=== PATIENT | male | born 1990 | race Caucasian/White ===

== ENCOUNTER 2018-03-13 05:19 | Emergency (ER) | payer SELFPAY ==
[~2018-03-13 05:19] MED LIST: CEP500 PO; LOR5/325 PO; NO ROUTINE MEDS
--- NOTE | 2018-03-13 05:23 | ER Report ---
History and Physical Time Seen By MD: 05:21 (CM DORANTES DO) HPI/ROS CHIEF COMPLAINT: Left testicular swelling and pain HISTORY OF PRESENT ILLNESS: 27-year-old male presents complaining of left testicular swelling and pain since 10:30 PM last night after having intercourse. Patient states the pain is very similar to when he had a previous torsion. Patient has a distant history of a previous torsion when he was in high school. Patient states he got in a warm bathtub and manipulated his testicles. He thinks he reliefed the torsion that he was experiencing. Patient 's pain was so severe that he had several episodes of vomiting. He notes that all /10 pain over the epididymis. REVIEW OF SYSTEMS: Respiratory: No cough, no dyspnea. Cardiovascular: No chest pain, no palpitations. Gastrointestinal: As above Musculoskeletal: No back pain. (CM DORANTES DO) Allergies: Coded Allergies: No Known Allergies (Verified Allergy, Mild, 03/13/18) Home Meds Active Scripts Doxycycline Hyclate (DOXYCYCLINE HYCLATE) 100 Mg Tablet, 100 MG PO BID for 10 Days, #20 TAB 0 Refills Prov:SURINDER RING MD 03/13/18 Discontinued Reported Medications Cephalexin Monohydrate (Keflex) 500 Mg Cap, 500 MG PO TID, 0 Refills 02/09/09 Acetaminophen/Hydrocodone (Lortab 5/325 Mg) 5 Mg/325 Mg Tab, 1 EA PO Q4-6H, 0 Refills 1-2 as needed for pain 02/09/09 [No Routine Meds] No Conflict Check, 0 Refills 02/09/09 Reviewed Nurses Notes: Yes Old Medical Records Reviewed: Yes (CM DORANTES DO) Constitutional Vital Sign - Last 24 Hours 03/13/18 03/13/18 03/13/18 03/13/18 05:23 05:24 05:49 06:19 Temp 98.5 Pulse 91 79 85 Resp 14 B/P (MAP) 137/84 137/84 (101) Pulse Ox 88 94 93 O2 Delivery Room Air 03/13/18 03/13/18 03/13/18 03/13/18 06:24 06:54 07:24 07:35 Pulse 62 73 B/P (MAP) 127/75 (92) Pulse Ox 92 93 94 (SURINDER RING MD) Physical Exam General Appearance: The patient is alert, has no immediate need for airway protection and no current signs of toxicity. Eyes: Pupils equal and round no injection. Respiratory: Chest is non tender, lungs are clear to auscultation. Cardiac: regular rate and rhythm Gastrointestinal: Abdomen is soft and non tender, no masses, bowel sounds normal. Genital: Normal circumcised male genitalia, tender and swollen left testicle. Especially tender over the epididymis. The testicles about 1-1/2 times size compared to the right testicle. There are no hernias detected. There is no inguinal lymphadenopathy noted Musculoskeletal: Neck: Neck is supple and non tender. No lymphadenopathy Extremities have full range of motion and are non tender. Skin: No rashes or lesions. DIFFERENTIAL DIAGNOSIS: After history and physical exam differential diagnosis was considered for testicular pain including but not limited to epididymitis, orchitis, referred pain from kidney stone, inguinal hernia, and torsion of the testicle. (CM DORANTES DO) Medical Decision Making Data Points Laboratory Hematology Test 03/13/18 05:25 Urine Color Yellow Urine Clarity Slightly-cloudy Urine pH 7.0 pH (4.8-9.5) Urine Specific [place] 1.028 Urine Protein 30 mg/dL (NEGATIVE) Urine Glucose (UA) Negative mg/dL (NEGATIVE) Urine Ketones Negative mg/dL (NEGATIVE) Urine Blood Negative (NEGATIVE) Urine Nitrite Negative (NEGATIVE) Urine Bilirubin Negative (NEGATIVE) Urine Urobilinogen 0.2 mg/dL (0.2-1.9) Urine Leukocyte Esterase Negative (NEGATIVE) Urine RBC <1 /HPF (0-2/HPF) Urine WBC None /HPF (0-5/HPF) Urine Squamous Epithelial Cells None /LPF (</=FEW) Urine Bacteria Negative /HPF (NONE-FEW) Urine Hyaline Casts Few /LPF (NONE-FEW) Urine Mucus Few /HPF (NONE-FEW) Chemistry Test 03/13/18 05:25 Urine Color Yellow Urine Clarity Slightly-cloudy Urine pH 7.0 pH (4.8-9.5) Urine Specific [place] 1.028 Urine Protein 30 mg/dL (NEGATIVE) Urine Glucose (UA) Negative mg/dL (NEGATIVE) Urine Ketones Negative mg/dL (NEGATIVE) Urine Blood Negative (NEGATIVE) Urine Nitrite Negative (NEGATIVE) Urine Bilirubin Negative (NEGATIVE) Urine Urobilinogen 0.2 mg/dL (0.2-1.9) Urine Leukocyte Esterase Negative (NEGATIVE) Urine RBC <1 /HPF (0-2/HPF) Urine WBC None /HPF (0-5/HPF) Urine Squamous Epithelial Cells None /LPF (</=FEW) Urine Bacteria Negative /HPF (NONE-FEW) Urine Hyaline Casts Few /LPF (NONE-FEW) Urine Mucus Few /HPF (NONE-FEW) Urinalysis Test 03/13/18 05:25 Urine Color Yellow Urine Clarity Slightly-cloudy Urine pH 7.0 pH (4.8-9.5) Urine Specific [place] 1.028 Urine Protein 30 mg/dL (NEGATIVE) Urine Glucose (UA) Negative mg/dL (NEGATIVE) Urine Ketones Negative mg/dL (NEGATIVE) Urine Blood Negative (NEGATIVE) Urine Nitrite Negative (NEGATIVE) Urine Bilirubin Negative (NEGATIVE) Urine Urobilinogen 0.2 mg/dL (0.2-1.9) Urine Leukocyte Esterase Negative (NEGATIVE) Urine RBC <1 /HPF (0-2/HPF) Urine WBC None /HPF (0-5/HPF) Urine Squamous Epithelial Cells None /LPF (</=FEW) Urine Bacteria Negative /HPF (NONE-FEW) Urine Hyaline Casts Few /LPF (NONE-FEW) Urine Mucus Few /HPF (NONE-FEW) (SURINDER RING MD) EKG/Imaging Imaging FACILITY: [facility] PATIENT NAME: John Tierney : 1990 MR: [id number] V: [id number] EXAM DATE: [id number] ORDERING PHYSICIAN: CM DORANTES TECHNOLOGIST: Location: [facility] [place] Patient: John Tierney : 1990 Visit/Account:[id number] Date of Sevice: 03/13/2018 SCROTAL ULTRASOUND INDICATION: Left testicular pain. History of torsion. COMPARISON: None available. FINDINGS: Right testicle measures 4.2 x 2.7 x 3.6 cm in cc, AP, and transverse dimensions respectively. There is normal arterial and venous blood flow. There is a small right hydrocele. No varicocele identified. The right epididymal head measures 1.1 cm. Left testicle measures 4.0 x 2.7 x 3.6 cm in cc, AP, and transverse dimensions respectively. There is normal arterial and venous blood flow. There is a left-sided hydrocele which is larger than on the right side. No varicocele identified. The left epididymal head measures 2.6 cm. The epididymis appears enlarged and is heterogeneous with increased color flow. The bilateral testicles appear homogenous in echogenicity. IMPRESSION: 1. Normal sonographic appearance of the testicles. No evidence of testicular torsion. 2. Asymmetric enlargement of the left epididymis with increased color flow consistent with epididymitis. 3. Left greater than right hydroceles. Report Dictated By: Shilo Gallo at 03/13/2018 6:49 AM Report E-Signed By: Shilo Gallo at 03/13/2018 6:56 AM WSN:[id number] (SURINDER RING MD) ED Course/Re-evaluation ED Course Patient was admitted to an examination room. H&P was done. The dental diagnoses was considered. On conical examination. Patient has a swollen tender left testicle. Diagnostic ultrasound was ordered. A urinalysis was performed. Patient was offered medication for pain but declined. Care was turned over to Dr. Ring at shift change with diagnostic ultrasound pending Decision to Disposition Date: Mar 14, 2018 Decision to Disposition Time: 07:03 (CM DORANTES DO) ED Course 03/13/2018 7:05:01 am I assumed care of patient from Dr Dorantes at this time. Patient with complaint of left-sided testicular pain prior history of torsion. Ultrasound shows normal arterial and venous flow to both testes there is a symmetrical enlargement of the left epididymis with increased color flow consistent with epididymitis. Left greater than right hydroceles. Patient is comfortable at this time and denies pain. Plan will be to place the patient on antibiotics for epididymitis pending cultures. Patient did have a bilateral orthopedics E which certainly decreases the likelihood of torsion. I did state that he should follow-up with his urologist who is in [place] at some point in the next week or so for reevaluation. I further explained to the patient that this weekend we do not have urology coverage at this hospital, so if his symptoms of pain return he was recommended he go to [place] where they should have an on-call urologist. Decision to Disposition Date: Mar 13, 2018 Decision to Disposition Time: 07:13 (SURINDER RING MD) Depart Departure Latest Vital Signs Vital Signs Date Time Temp Pulse Resp B/P (MAP) Pulse Ox O2 Delivery O2 Flow Rate FiO2 03/13/18 07:35 127/75 (92) 03/13/18 07:24 73 94 03/13/18 05:23 98.5 14 Room Air (SURINDER RING MD) Impression: Primary Impression: Acute epididymitis Additional Impression: Epididymitis, left Condition: Improved Disposition: HOME OR SELF-CARE New Scripts Doxycycline Hyclate (DOXYCYCLINE HYCLATE) 100 Mg Tablet 100 MG PO BID for 10 Days, #20 TAB 0 Refills Prov: SURINDER RING MD 03/13/18 Patient Instructions: Epididymitis (ED), Testicle Pain (ED) Additional Instructions: #1 take your antibiotics as directed until completed. #2 schedule a follow-up appointment with your urologist in [place] the next 1- 2 weeks for reevaluation #3 if your testicular pain reoccurs it is recommended that you proceed immediately to [facility] to the emergency department for evaluation as we do not have the urology coverage this weekend Problem Qualifiers CM DORANTES DO Mar 13, 2018 05:23 SURINDER RING MD Mar 13, 2018 07:06
--- NOTE | 2018-03-13 07:02 | RADIOLOGY IMAGING REPORT ---
FACILITY: [facility] PATIENT NAME: John Tierney : 1990 MR: [id number] V: [id number] EXAM DATE: [id number] ORDERING PHYSICIAN: CM MOLINA TECHNOLOGIST: Location: [facility] - [place] Patient: John Tierney : 1990 Visit/Account:[id number] Date of Sevice: 03/13/2018 SCROTAL ULTRASOUND INDICATION: Left testicular pain. History of torsion. COMPARISON: None available. FINDINGS: Right testicle measures 4.2 x 2.7 x 3.6 cm in cc, AP, and transverse dimensions respectively. There is normal arterial and venous blood flow. There is a small right hydrocele. No varicocele identified. The right epididymal head measures 1.1 cm. Left testicle measures 4.0 x 2.7 x 3.6 cm in cc, AP, and transverse dimensions respectively. There is normal arterial and venous blood flow. There is a left-sided hydrocele which is larger than on the right side. No varicocele identified. The left epididymal head measures 2.6 cm. The epididymis appears enlarged and is heterogeneous with i ncreased color flow. The bilateral testicles appear homogenous in echogenicity. IMPRESSION: 1. Normal sonographic appearance of the testicles. No evidence of testicular torsion. 2. Asymmetric enlargement of the left epididymis with increased color flow consistent with epididymit is. 3. Left greater than right hydroceles. Report Dictated By: Shilo Gallo at 03/13/2018 6:49 AM Report E-Signed By: Shilo Gallo at 03/13/2018 6:56 AM WSN:[id number]
[2018-03-13] MEDS ORDERED: DOXY-179 PO (07:16)
[2018-03-13] MEDS ORDERED: cefTRIAXone 250 MG VIAL IM ONE (07:20)
[2018-03-13 07:35] VITALS: BP 127/75
== END 2018-03-13 07:45 | disposition home or self-care (01) ==
LOC: ER 05:27
DX: N45.1 Epididymitis (principal); N43.3 Hydrocele, unspecified
CPT/HCPCS: 76870; 81001; 87491; 87591; 96372; 99283; J0696